=== PATIENT | male | born 1990 | race African-American/Black ===

== ENCOUNTER 2025-01-11 13:14 | Inpatient (IN) | payer OTHER ==
[2025-01-11] MEDS ORDERED: POLYETHYLENE GLYCOL (HEALTHYLAX) 3350 17 GM PACKET PO PRN (14:30)
[2025-01-11] MEDS ORDERED: NALOXONE (NARCAN) HCL 4 MG/0.1 ML SPRAY NS PRN (14:30)
[2025-01-11] MEDS ORDERED: LOPERAMIDE HCL 2 MG CAPSULE PO PRN (14:30)
[2025-01-11] MEDS ORDERED: BENZONATATE 200 MG CAPSULE PO PRN (14:30)
[2025-01-11] MEDS ORDERED: ACETAMINOPHEN 325 MG TABLET (FP) PO PRN (14:30)
[2025-01-11] MEDS ORDERED: DICYCLOMINE HCL 10 MG CAPSULE PO PRN (14:30)
[2025-01-11] MEDS ORDERED: ONDANSETRON *ODT* 4 MG TABLET SL PRN (14:30)
[2025-01-11] MEDS ORDERED: IBUPROFEN 600 MG TABLET (FP) PO PRN (14:30)
[2025-01-11] MEDS ORDERED: BENZOCAINE/MENTHOL (CHLORASEPTIC ) LOZENGE MM PRN (14:30)
[2025-01-11] MEDS ORDERED: guaiFENesin 600 MG TABLET.ER (FP) PO PRN (14:30)
[2025-01-11] MEDS ORDERED: NICOTINE POLACRILEX 2 MG LOZENGE BC PRN (14:30)
[2025-01-11] MEDS ORDERED: chlordiazePOXIDE HCL 25 MG CAPSULE PO PRN (14:30)
[2025-01-11] MEDS ORDERED: IBUPROFEN 400 MG TABLET (FP) PO PRN (14:30)
[2025-01-11 14:32] VITALS: BMI 28.1
[2025-01-11] MEDS ORDERED: NALTREXONE HCL 50 MG TABLET PO ONE (18:00)
[2025-01-11] MEDS: chlordiazePOXIDE HCL 25 MG CAPSULE PO SCH (18:00)
[2025-01-11] MEDS ORDERED: chlordiazePOXIDE HCL 25 MG CAPSULE ONE (18:32)
[2025-01-11] MEDS: METHOCARBAMOL 500 MG TABLET PO PRN (18:48)
[2025-01-11] MEDS ORDERED: METHOCARBAMOL 500 MG TABLET ONE (18:49)
[2025-01-11] MEDS: NALTREXONE HCL 50 MG TABLET PO ONE (19:32)
[2025-01-11] MEDS: MIRTAZAPINE 15 MG TABLET (FP) PO SCH (22:28)
[2025-01-11] MEDS: THIAMINE 100 MG TABLET PO SCH (22:28)
[2025-01-11] MEDS: MELATONIN 5 MG TABLETS PO SCH (22:29)
[2025-01-12] MEDS: MAG HYDROX/AL HYDROX/SIMETH 30 ML UNIT-DOSE CUP PO PRN (03:49)
[2025-01-12] MEDS: NALTREXONE HCL 50 MG TABLET PO SCH (10:14)
[2025-01-12] MEDS: hydrOXYzine PAMOATE 25 MG CAPSULE (FP) PO PRN (10:14)
[2025-01-12] MEDS: PRENATAL VITAMINS W/ FOLIC ACID TABLET (FP) PO SCH (10:14)
[2025-01-12] MEDS: NICOTINE 14 MG/24 HOURS TOPICAL PATCH TD SCH (10:15)
[2025-01-12] MEDS: PNEUMOC 20-VAL CONJ-DIP CRM/PF 0.5 ML SYRINGE IM ONE (11:43)
[2025-01-12 12:07] LABS: HEMATOCRIT 40.2 % (35.4-49); HEMOGLOBIN 12.7 GM/dL (11.7-16.9); MCH 28.4 pg (25.7-33.7); MCHC 31.5 g/dl (32.0-35.9); MEAN PLT VOLUME 7.5 fl (7.5-11.1); PLATELET COUNT 317 10^3/uL (134-434); RBC 4.46 M/mm3 (4.00-5.60); RDW 15.6 % (11.9-15.9); WHITE BLOOD COUNT 9.2 K/mm3 (4.0-10.0)
[2025-01-12 12:10] LABS: CHLORIDE 103 mmol/L (98-107); POTASSIUM 4.4 mmol/L (3.5-5.1); SODIUM 138 mmol/L (136-145)
[2025-01-12 12:14] LABS: CALCIUM 9.5 mg/dL (8.5-10.1)
[2025-01-12 12:15] LABS: ALBUMIN 4.1 g/dl (3.4-5.0); ANION GAP 8 mmol/L (4-13); CO2 27 mmol/L (21-32); GLUCOSE,RANDOM 178 mg/dL (74-106)
[2025-01-12 12:18] LABS: CREATININE 0.8 mg/dL (0.55-1.3); SGOT/AST 37 U/L (15-37); SGPT/ALT 56 U/L (13-61)
[2025-01-12 12:19] LABS: BILIRUBIN,TOTAL 0.2 mg/dL (0.2-1)
[2025-01-12 12:20] LABS: TOT PROT 7.4 g/dl (6.4-8.2)
[2025-01-12 12:21] LABS: ALK PHOS 91 U/L (45-117)
[2025-01-12] MEDS: QUEtiapine FUMARATE 100 MG TABLET (FP) PO SCH (22:40)
[2025-01-13] MEDS: chlordiazePOXIDE HCL 25 MG CAPSULE PO SCH (06:00)
[2025-01-13] MEDS: NICOTINE POLACRILEX 2 MG GUM BUC PRN (14:26)
[2025-01-14] MEDS: chlordiazePOXIDE HCL 10 MG CAPSULE PO SCH (06:00)
[2025-01-14] MEDS: QUEtiapine FUMARATE 100 MG TABLET (FP) PO ONE (10:07)
[2025-01-14] MEDS: hydrOXYzine PAMOATE 50 MG CAPSULE (FP) PO PRN (12:17)
[2025-01-14] MEDS: chlordiazePOXIDE HCL 10 MG CAPSULE PO PRN (20:32)
[2025-01-14] MEDS: QUEtiapine FUMARATE 200 MG TABLET PO SCH (22:38)
[2025-01-15] MEDS: MAGNESIUM HYDROX 2400MG/30ML ORAL SUSPENSION 30 ML CUP PO PRN (02:25)
[2025-01-15] MEDS: chlordiazePOXIDE HCL 10 MG CAPSULE PO SCH (05:48)
[2025-01-15] MEDS: QUEtiapine FUMARATE 100 MG TABLET (FP) PO SCH (10:42)
[2025-01-16] MEDS: chlordiazePOXIDE HCL 10 MG CAPSULE PO ONE (05:42)
[2025-01-16] MEDS: BISMUTH SUBSALICYLATE 524 MG/30 ML PO PRN (05:42)
[2025-01-16 09:17] VITALS: BP 129/83; PULSE 85; RESP 18; TEMP 97.5
== END 2025-01-16 10:50 | disposition home or self-care (01) | DRG 774 ==
LOC: YASAS 13:14 → Y6N 18:31
PROVIDERS: ADMIT Allergy & Immunology; ATTEND Allergy & Immunology
PROC: HZ2ZZZZ Detoxification Services for Substance Abuse Treatment (ICD-10-PCS; principal; 2025-01-11)
DX: F10.230 Alcohol dependence with withdrawal, uncomplicated (principal); F14.20 Cocaine dependence, uncomplicated; F12.20 Cannabis dependence, uncomplicated; F17.210 Nicotine dependence, cigarettes, uncomplicated; F19.282 Other psychoactive substance dependence with psychoactive substance-induced sleep disorder; F19.280 Other psychoactive substance dependence with psychoactive substance-induced anxiety disorder; F43.10 Post-traumatic stress disorder, unspecified; F41.8 Other specified anxiety disorders; F32.A Depression, unspecified; R45.851 Suicidal ideations
CPT/HCPCS: 36415; 80053; 80305; 80307; 85027; 86780; 90677; 93005; 93010; G0009